=== PATIENT | male | born 1990 | race Caucasian/White ===

== ENCOUNTER 2017-08-31 17:46 | Emergency (ER) | payer OTHER ==
--- NOTE | 2017-08-31 18:38 | XRAY Preliminary Report ---
Exam: XR ANKLE 3 VIEW LT IMPRESSION: No evidence for acute fracture. [facility] SITE ID: [id number]
--- NOTE | 2017-08-31 18:40 | XRAY Report ---
EXAM: LEFT ANKLE RADIOGRAPHY EXAM DATE: 08/31/2017 06:31 PM. CLINICAL HISTORY: Pain. Left ankle pain after fall. COMPARISON: None. TECHNIQUE: 3 views. FINDINGS: Bones: Normal. No fractures or bone lesions. Joints: Normal. No effusion. No subluxations. The ankle mortise is normally aligned. Soft Tissues: Unremarkable. IMPRESSION: No evidence for acute fracture. [facility] Referring Provider Line: [phone] SITE ID: [id number]
--- NOTE | 2017-08-31 18:48 | ED Physician Documentation ---
PD HPI LOWER EXT INJURY - Stated complaint Stated Complaint: L ANKLE INJ - Chief complaint Chief Complaint: Trauma Ext - History obtained from History obtained from: Patient - History of Present Illness PD HPI LOW EXT INJURY LOCATION: Left, Ankle Type of injury: Twist Where injury occurred: Work Timing - onset: Today Timing - duration: Hours Timing - details: Abrupt onset, Still present Improved by: Rest Worsened by: Moving, Other (standing and walking) Associated symptoms: Swelling. No: Weakness, Numbness Similar symptoms before: Has not had sx before Recently seen: Not recently seen Review of Systems Skin: denies: Abrasion (s), Laceration (s) Musculoskeletal: denies: Back pain Neurologic: denies: Focal weakness, Numbness PD PAST MEDICAL HISTORY - Past Medical History Past Medical History: No Musculoskeletal: None - Past Surgical History Past Surgical History: No - Present Medications Home Medications: Ambulatory Orders Medication Instructions Recorded Confirmed No Known Home Medications [No 08/31/17 08/31/17 Known Home Medications] - Allergies Allergies/Adverse Reactions: Allergies Allergy/AdvReac Type Severity Reaction Status Date / Time No Known Drug Allergies Allergy Verified 08/31/17 18:07 - Social History Does the pt smoke?: No Smoking Status: Never smoker Does the pt drink ETOH?: No Does the pt have substance abuse?: No PD ED PE NORMAL - Vitals Vital signs reviewed: Yes - General General: Alert and oriented X 3, No acute distress, Well developed/nourished - Derm Derm: Normal color, Warm and dry - Extremities Extremities: No calf tenderness / cord, Other (left ankle with tenderness over ATFL area. No laxity with inversion stress of PTFL. Medially not tender. Achilles firm and intact. Lower leg and knee area not tender. ) - Neuro Neuro: No motor deficit, No sensory deficit Results - Vitals Vitals: Oxygen O2 Source Room air - Rads (name of study) left ankle Radiology: Prelim report reviewed, EMP read contemporaneously (no fracture) PD MEDICAL DECISION MAKING - ED course Complexity details: reviewed results (he is having considerable discomfort with weight bearing and walking, so given crutches and aircast. To follow up with PMD. ), considered differential, d/w patient Departure - Departure Disposition: 01 Home, Self Care Clinical Impression: Left ankle sprain Qualifiers: Encounter type: initial encounter Involved ligament of ankle: other ligament Qualified Code(s): S93.492A - Sprain of other ligament of left ankle, initial encounter Condition: Stable Record reviewed to determine appropriate education?: Yes Instructions: ED Sprain Ankle W X Ray Follow-Up: ALBERTO Cueva [Provider Group] Comments: Using ankle brace when up and around to support the ligaments for the next 3-4 weeks. Initially use crutches for the discomfort of walking and weightbearing but it is okay to progress weightbearing as able. Likely need the crutches for a few days to a week. Progress weightbearing as able but continue to wear the ankle brace for 3-4 weeks when up and around. Ibuprofen 3 times a day as needed for pains. Ice, elevate and rest the ankle often the next couple of days to reduce swelling. Follow-up with your primary care in about a week, call for an appointment. Forms: Activity restrictions Discharge Date/Time: 08/31/17 19:52
[2017-08-31 19:53] VITALS: BP 125/80
== END 2017-08-31 19:52 | disposition home or self-care (01) ==
LOC: ED 17:46
DX: S93.492A Sprain of other ligament of left ankle, initial encounter (principal); X50.0XXA Overexertion from strenuous movement or load, initial encounter; Y92.89 Other specified places as the place of occurrence of the external cause; Y99.0 Civilian activity done for income or pay
CPT/HCPCS: 99283